=== PATIENT | female | born 1965 | race Caucasian/White ===

== ENCOUNTER 2018-08-07 18:08 | Emergency (ER) | payer OTHER ==
[2018-08-07 18:22] VITALS: BP 127/81
[2018-08-07] MEDS ORDERED: Tetan/Diph/Pertus SYR(Tdap)* 0.5 ML SYR(BOOSTRIX) use SYR IM ONE (18:35)
--- NOTE | 2018-08-07 18:41 | UC ---
Laceration HPI - HPI Summary HPI Summary: 53-year-old female presents for laceration of her left thumb. States occurred approximately 30-40 minutes ago. Cut with a sharp knife while cooking. Bleeding controlled with direct pressure. Tetanus status is unknown. 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 Laceration Location: Hand - Left thumb Onset/Duration: Sudden Onset Severity: Mild Pain Intensity: 2 - Allergies/Home Medications Allergies/Adverse Reactions: Allergies Allergy/AdvReac Type Severity Reaction Status Date / Time No Known Allergies Allergy Verified 08/07/18 18:22 PMH/Surg Hx/FS Hx/Imm Hx Respiratory History: Asthma - Surgical History Surgical History: Yes Surgery Procedure, Year, and Place: Cholecystectomy - Family History Family History: Noncontributory - Social History Alcohol Use: Occasionally Substance Use Type: None Smoking Status (MU): Never Smoked Tobacco - Immunization History Most Recent Influenza Vaccination: fall 2015 Most Recent Tetanus Shot: unknown Review of Systems Constitutional: Negative Skin: Other - Laceration left thumb Musculoskeletal: Negative Neurological: Negative Is Patient Immunocompromised?: No All Other Systems Reviewed And Are Negative: Yes Physical Exam Triage Information Reviewed: Yes Appearance: Well-Appearing, No Pain Distress, Well-Nourished Vital Signs: Initial Vital Signs Temp 98.4 F 08/07/18 18:16 Pulse 63 08/07/18 18:16 Resp 16 08/07/18 18:16 BP 127/81 08/07/18 18:16 Pulse Ox 100 08/07/18 18:16 Vital Signs Reviewed: Yes Respiratory: Positive: No respiratory distress Cardiovascular: Positive: Pulses Normal, Brisk Capillary Refill Musculoskeletal Exam: Normal Neurological: Positive: Alert, Other: - sensation intact Skin: Positive: Other - Superficial flap laceration to distal aspect of left thumb near lateral nail fold. No nail injury. Bleeding controlled. Laceration Repair - Laceration Repair 1 Description: Linear - superficial flap Laceration Size After Repair: Length (cm) - 0.5 Modified For Repair: No Irrigation With Pressure Irrigation Device: Yes Closure Material: Skin Adhesive, SteriStrips Suture Of: Skin Laceration Course/Dx - Course/Dx Course Of Treatment: 53-year-old female with superficial laceration to the distal lateral aspect of her left thumb. Wound was closed with skin adhesive and Steri-Strips after being cleaned and irrigated. Tetanus was updated. Wound care and warning symptoms were reviewed. Patient verbalizes understanding. - Differential Dx - Laceration/Wound Provider Diagnoses: left thumb laceration Discharge - Sign-Out/Discharge Documenting (check all that apply): Patient Departure All imaging exams completed and their final reports reviewed: No Studies - Discharge Plan Condition: Stable Disposition: HOME Patient Education Materials: Finger Laceration (ED), Skin Adhesive Care (ED) Referrals: Sage Cuevas MD [Primary Care Provider] - If Needed Additional Instructions: Keep the dressing that was applied in the clinic in place for the next 24 hours. After 24 hours he may remove and wash her hands and shower as normal. Avoid submerging the injury under water until fully healed. You should wash the wound gently with a mild soap and water at least once daily and keep covered with a gauze dressing. Avoid using any ointments or lotions as this could dissolve the skin adhesive used to close your wound. Because of the superficial nature of her wound I suspect that the skin flap will eventually come off. If this happens simply keep the wound covered with a gauze dressing and allow to heal from the inside out. Your tetanus was updated today. Be sure to notify your primary care provider so that they can update your records. Follow-up with your primary care provider as needed. Watch for signs of infection including fever greater than 100.5 F, redness that spreads, swelling of the finger, pain that is not managed by [id number] pain medication, or pus draining from the wound. Seek immediate medical attention should any of these occur. - Billing Disposition and Condition Condition: STABLE Disposition: Home
== END 2018-08-07 19:25 | disposition home or self-care (01) ==
LOC: UCEAST 18:08
DX: S61.012A Laceration without foreign body of left thumb without damage to nail, initial encounter (principal); W26.0XXA Contact with knife, initial encounter; Y93.G1 Activity, food preparation and clean up; Y92.000 Kitchen of unspecified non-institutional (private) residence as the place of occurrence of the external cause
CPT/HCPCS: 12001; 90471; 90715; 99211; G0463

== ENCOUNTER 2024-02-16 08:44 | Inpatient (IN) ==
[2024-02-16 09:28] LABS: ABS Basophils 0.1 10^3/uL (0.0-0.1); ABS Neutrophils 8.9 10^3/uL (1.5-7.6); ABS Nucleated RBC 0.01 10^3/ul; Eosinophil % 0.4 %; Hematocrit 45.7 % (35-45); Hemoglobin 15.8 g/dL (11.5-14.3); Lymphocyte % 16.8 %; Mean Corpuscular Hemoglobin 31.1 pg (27-33); Mean Corpuscular Hgb Conc 34.5 g/dL (31-36); Mean Corpuscular Volume 90.1 fL (80-97); Mean Platelet Volume 7.8 fL (7.5-11.2); Nucleated Red Blood Cells % 0.1 %/100WBC (0.0-0.8); Platelet Count 270 10^3/uL (150-450); Red Blood Count 5.07 10^6/uL (3.63-4.92); Red Cell Distribution Width 13.2 % (12-17); White Blood Count 12.1 10^3/uL (3.8-11.8)
[2024-02-16] MEDS: Lactated Ringers 1000 ml BAG 1,000 ML IV ONE (09:49)
[2024-02-16 10:06] LABS: Albumin 4.6 g/dL (3.2-5.2); Albumin/Globulin Ratio 1.9 (1-3); Calcium 9.6 mg/dL (8.6-10.3); Creatinine, Serum 0.77 mg/dL (0.51-0.95); Globulin 2.4 g/dL (2-4); Total Bilirubin 0.9 mg/dL (0.2-1.0); eGFR CKD-EPI 88.3 (>60)
[2024-02-16] MEDS: Iohexol 300 (CONTRAST) 10 ML SDV IV ONE (10:39)
[2024-02-16 11:33] LABS: Urine Appearance Clear; Urine Bilirubin Negative (Negative); Urine Blood Negative (Negative); Urine Color Light-Yellow; Urine Glucose Negative (Negative); Urine Ketones Negative (Negative); Urine Nitrite Negative (Negative); Urine Protein Negative (Negative); Urine Specific Gravity 1.036 (1.002-1.030); Urine Urobilinogen Negative (Negative); Urine pH 7.5 (5.0-8.0)
[2024-02-16] MEDS: Piperacillin/Tazobac 3.375 BAG 3.375 GM/100 ML BAG IV ONE (12:05)
[2024-02-16] MEDS ORDERED: Albuterol/Ipratropium NEB.SOL (2.5/0.5 MG) 3 ML NEB.SOLN INH PRN (12:40)
[2024-02-16] MEDS ORDERED: HYDROmorphone 0.5 MG/0.5 ML SYRINGE IV SLOW PU PRN (12:45)
[2024-02-16] MEDS: NS 0.9% 1000 ml BAG 1,000 ML IV SCH (13:22)
[2024-02-16] MEDS: Acetaminophen IV 1 GM/100ML 1,000 MG/100 ML BAG IV SCH (13:30)
[2024-02-16] MEDS ORDERED: Piperacillin/Tazobac 3.375 BAG 3.375 GM/100 ML BAG IV SCH (16:00)
[2024-02-16] MEDS: Piperacillin/Tazobac 3.375 BAG 3.375 GM/100 ML BAG IV SCH (16:52)
[2024-02-17 05:29] LABS: ABS Basophils 0.1 10^3/uL (0.0-0.1); ABS Eosinophils 0.1 10^3/uL (0.0-0.5); ABS Lymphocytes 1.6 10^3/uL (1.0-4.8); ABS Neutrophils 7.2 10^3/uL (1.5-7.6); Eosinophil % 1.2 %; Hematocrit 38.7 % (35-45); Hemoglobin 13.4 g/dL (11.5-14.3); Lymphocyte % 16.1 %; Mean Corpuscular Hemoglobin 31.2 pg (27-33); Mean Corpuscular Hgb Conc 34.5 g/dL (31-36); Mean Corpuscular Volume 90.5 fL (80-97); Mean Platelet Volume 7.7 fL (7.5-11.2); Platelet Count 221 10^3/uL (150-450); Red Blood Count 4.28 10^6/uL (3.63-4.92)
[2024-02-17 06:11] LABS: Calcium 8.3 mg/dL (8.6-10.3); Creatinine, Serum 0.69 mg/dL (0.51-0.95); Potassium 3.8 mmol/L (3.5-5.0); eGFR CKD-EPI 99.3 (>60)
[2024-02-17] MEDS: Ondansetron 4 mg VIAL 2 MG/ML 2 ml VIAL IV PRN (22:10)
[2024-02-18] MEDS: NS 0.9% 1000 ml BAG 1,000 ML IV SCH (10:50)
[2024-02-19 10:28] VITALS: BP 154/73
[2024-03-02 11:57] LABS: Hematocrit 45.5 % (35-45); Hemoglobin 15.6 g/dL (11.5-14.3); Mean Corpuscular Hgb Conc 34.2 g/dL (31-36); Mean Corpuscular Volume 90.7 fL (80-97); Mean Platelet Volume 8.6 fL (7.5-11.2); Platelet Count 323 10^3/uL (150-450); Red Blood Count 5.02 10^6/uL (3.63-4.92); Red Cell Distribution Width 13.3 % (12-17); White Blood Count 8.1 10^3/uL (3.8-11.8)
[2024-03-02 12:14] LABS: Calcium 10.3 mg/dL (8.6-10.3); Creatinine, Serum 0.74 mg/dL (0.51-0.95); Potassium 4.6 mmol/L (3.5-5.0)
== END 2024-02-19 13:30 | disposition home or self-care (01) | DRG 392 ==
LOC: EDHOLD 08:44 → ED 08:44 → SSU 14:42
PROVIDERS: ADMIT Surgery; ATTEND Surgery